=== PATIENT | female | born 1950 | race Caucasian/White ===

== ENCOUNTER 2022-04-06 14:06 | Inpatient (IN) | payer MEDICARE ==
[~2022-04-06] VITALS: Ht 154.9 cm; Wt 59.0 kg
--- NOTE | 2022-04-06 14:10 | NUR ---
DELAY IN PATIENT CARE, DAUGHTER CALLING 'S OFFICE TO CLARIFY ADMIT ORDERS.
[2022-04-06 14:56] LABS: HEMATOCRIT 39.1 % (37.0-47.0); HEMOGLOBIN 11.8 g/dl (12.0-16.0); IMMATURE GRANULOCYTES 1.2 % (0.0-5.0); MEAN CELL VOLUME 90.7 fL CALC (80.0-100.0); MEAN CORPUSCULAR HGB 27.4 pG CALC (26.0-32.0); MEAN CORPUSCULAR HGB CONC 30.2 g/dL CAL (32.0-36.0); NEUT# 13.52 thou/uL (2.00-7.15); RED BLOOD COUNT 4.31 mill/uL (4.20-5.60); RED CELL DISTRI WIDTH 15.4 % (11.5-15.5)
[2022-04-06 15:06] LABS: ALBUMIN 3.4 g/dL (3.2-5.0); ALKALINE PHOSPHATASE 65 u/l (38-126); ANION GAP 9 (6-22 (CALC)); BILIRUBIN, TOTAL 0.6 mg/dL (0.0-1.4); BUN 13 mg/dL (8-23); BUN/CREATININE RATIO 22 (12-20 (CALC)); CARBON DIOXIDE 25 mmol/l (22-30); CHLORIDE 107 mmol/l (95-108); CREATININE 0.6 mg/dL (0.5-1.0); GFR FOR AFR.AMER. > 60 ML/MIN (>=60 (CALC)); GFR OTHER RACES > 60 ML/MIN (>=60 (CALC)); POTASSIUM 3.3 mmol/l (3.5-5.1); SGOT/AST 24 u/l (9-36); SODIUM 137 mmol/l (137-146); TOTAL PROTEIN 6.2 g/dL (6.3-8.2)
--- NOTE | 2022-04-06 15:47 | NUR ---
Reassessment of patient completed. No distress noted.
--- NOTE | 2022-04-06 16:51 | NUR ---
Reassessment of patient completed. No distress noted.
--- NOTE | 2022-04-06 17:05 | NUR ---
RECEIVED PATIENT FROM ED VIA STRETCHER @ [id number]. BESIDE REPORT RECEIVED FROM ED RN. PATIENT IS A&OX4. PATIENT PRESENTS WITH PNEUMONIA. 02 PLACED @ 3L VIA NC. PATIENT DENIES PAIN AT THIS TIME. PATIENT IS RESTING IN BED IN LOW SEMI-FOWLERS POSITION. ASSESSMENT COMPLETED. ORIENTED PATIENT TO ROOM, CALL LIGHT WITH IN REACH, BED IN LOWEST POSITION.
--- NOTE | 2022-04-06 17:16 | NUR ---
REPORT GIVEN TO HÉCTOR
[2022-04-06 17:49] VITALS: BP 127/78
--- NOTE | 2022-04-06 19:07 | NUR ---
MESSAGED ABOUT SEPSIS RISK ALERT. ADDED ORDERS.
[2022-04-06 19:13] VITALS: BP 100/64
[2022-04-06] MEDS ORDERED: LEFLUNOMIDE20 MG PO (19:23)
[2022-04-06] MEDS ORDERED: LOSARTAN POTASS50 MG PO (19:24)
[2022-04-06] MEDS ORDERED: LEVOTHYROXIN50 MCG PO (19:25)
[2022-04-06] MEDS ORDERED: PREDNISONE5 MG PO (19:26)
[2022-04-06] MEDS ORDERED: AMLODIPINE BESYL5 MG PO (19:27)
[2022-04-06] MEDS ORDERED: OMEPRAZOLE20 MG PO (19:28)
[2022-04-06] MEDS ORDERED: SPIRONOLACTONE25 MG PO (19:29)
[2022-04-06] MEDS ORDERED: CRESTOR5 MG PO (19:32)
[2022-04-06] MEDS ORDERED: MONTELUKAST SOD10 MG PO ×2 (19:32→19:36)
[2022-04-06] MEDS ORDERED: PROAIR DIG108 MCG/AC (19:33)
[2022-04-06] MEDS ORDERED: YUPELRI175 MCG/3 (19:33)
[2022-04-06] MEDS ORDERED: JANTOVEN5 MG PO (19:35)
[2022-04-06] MEDS ORDERED: SILDENAFIL20 MG (19:36)
[2022-04-06] MEDS ORDERED: FUROSEMIDE20 MG PO (19:37)
--- NOTE | 2022-04-06 20:30 | NUR ---
PT IN BED AWAKE NO DISTRESS NOTED, PT WAS PUT ON IV FLUIDS AND WAS TOLD HER ARM WAS HURTING WENT IN TO CHECK PT AND HER IV WAS SWOLLEN AND INFILTRATED, REMOVED IV AND PLACED A NEW IV. GAVE PT A COLD PACK TO PUT ON ARM, BED IN LOW POSITION, CALL LIGHT IN REACH
[2022-04-06 20:56] LABS: INTERNATIONAL NORMALIZED RATIO 2.6 RATIO (0.7-1.3); PROTHROMBIN TIME 25.7 SECONDS (9.0-12.5)
--- NOTE | 2022-04-07 | NUR ---
PT IN BED ASLEEP, NO DISTRESS NOTED, BED IN LOW POSITION, CALL LIGHT IN REACH
[2022-04-07 00:23] VITALS: BP 122/79
[2022-04-07 04:19] VITALS: BP 126/78
[2022-04-07 05:38] LABS: HEMATOCRIT 35.6 % (37.0-47.0); HEMOGLOBIN 10.8 g/dl (12.0-16.0); MEAN CELL VOLUME 91.3 fL CALC (80.0-100.0); MEAN CORPUSCULAR HGB 27.7 pG CALC (26.0-32.0); MEAN CORPUSCULAR HGB CONC 30.3 g/dL CAL (32.0-36.0); RED BLOOD COUNT 3.9 mill/uL (4.20-5.60); RED CELL DISTRI WIDTH 15.1 % (11.5-15.5)
[2022-04-07 05:42] LABS: ANION GAP 9 (6-22 (CALC)); BUN 12 mg/dL (8-23); BUN/CREATININE RATIO 23 (12-20 (CALC)); CARBON DIOXIDE 22 mmol/l (22-30); CHLORIDE 112 mmol/l (95-108); CREATININE 0.5 mg/dL (0.5-1.0); GFR FOR AFR.AMER. > 60 ML/MIN (>=60 (CALC)); GFR OTHER RACES > 60 ML/MIN (>=60 (CALC)); SODIUM 139 mmol/l (137-146)
[2022-04-07 05:46] LABS: POTASSIUM 4.1 mmol/l (3.5-5.1)
[2022-04-07 07:00] VITALS: BP 133/78
--- NOTE | 2022-04-07 08:00 | NUR ---
GOT REPORT FROM MICROBIOLOGY COORDINATOR NURSE. PATIENT ASSESSED. AOX4. PATIENT IV IN RH BLEEDING POST BP. IV REMOVED AND NEW IV STARTED IN RFA. PATIENT TOLERATED WELL. RESTARTED FLUIDS. MEDICATION GIVEN AND BREAKFAST GIVEN. PATIENT CALL LIGHT AND BEDSIDE TABLE WITH IN REACH. ADVISED TO CALL IF SHE NEEDED ANYTHING. PATIENT VERBALIZED UNDERSTANDING. DOOR LEFT OPEN PER PATIENT REQUEST.
--- NOTE | 2022-04-07 11:35 | NUR ---
Patient instructed on use of acapella. Patient demonstrated with good effort.
[2022-04-07 11:57] VITALS: BP 132/88
[2022-04-07 15:09] VITALS: BP 131/76
[2022-04-07 19:20] VITALS: BP 110/69
--- NOTE | 2022-04-07 20:22 | NUR ---
PT IS IN BED AWAKE, NO DISTRESS NOTED, PT STATES NO PAIN, BED IN LOW POSITION, CALL LIGHT IN REACH
[2022-04-07 20:31] LABS: URINE BILIRUBIN - DIPSTICK NEGATIVE (NEGATIVE); URINE BLOOD DIPSTICK NEGATIVE (NEGATIVE); URINE COLOR YELLOW; URINE GLUCOSE - DIPSTICK NEGATIVE (NEGATIVE); URINE KETONE NEGATIVE (NEGATIVE); URINE LEUK ESTERASE NEGATIVE (NEGATIVE); URINE PROTEIN - DIPSTICK NEGATIVE (NEG-TRACE); URINE SPECIFIC GRAVITY 1.015; URINE UROBILINOGEN - DIPSTICK 0.2 E.U./dL (0.2)
[2022-04-07 20:32] LABS: URINE NITRITE - DIPSTICK NEGATIVE (Negative)
[2022-04-08 00:20] VITALS: BP 126/72
[2022-04-08 03:57] VITALS: BP 129/73
[2022-04-08 05:15] LABS: HEMATOCRIT 32.4 % (37.0-47.0); HEMOGLOBIN 9.9 g/dl (12.0-16.0); IMMATURE GRANULOCYTES 0.6 % (0.0-5.0); MEAN CELL VOLUME 90.8 fL CALC (80.0-100.0); MEAN CORPUSCULAR HGB 27.7 pG CALC (26.0-32.0); MEAN CORPUSCULAR HGB CONC 30.6 g/dL CAL (32.0-36.0); NEUT# 9.96 thou/uL (2.00-7.15); RED BLOOD COUNT 3.57 mill/uL (4.20-5.60); RED CELL DISTRI WIDTH 15.4 % (11.5-15.5)
[2022-04-08 05:32] LABS: BUN 16 mg/dL (8-23); BUN/CREATININE RATIO 24 (12-20 (CALC)); CARBON DIOXIDE 24 mmol/l (22-30); CREATININE 0.7 mg/dL (0.5-1.0); GFR FOR AFR.AMER. > 60 ML/MIN (>=60 (CALC)); GFR OTHER RACES > 60 ML/MIN (>=60 (CALC))
[2022-04-08 05:42] LABS: ANION GAP 5 (6-22 (CALC)); CHLORIDE 114 mmol/l (95-108); INTERNATIONAL NORMALIZED RATIO 2.1 RATIO (0.7-1.3); POTASSIUM 3.5 mmol/l (3.5-5.1); PROTHROMBIN TIME 20.8 SECONDS (9.0-12.5); SODIUM 139 mmol/l (137-146)
[2022-04-08 06:42] VITALS: BP 137/73
[2022-04-08 08:20] VITALS: BP 137/73
--- NOTE | 2022-04-08 08:24 | NUR ---
RESTING IN BED, NO SIGNS OR SYMPTOMS OF DISTRESS NOTED OR VOICED.
[2022-04-08 10:56] VITALS: BP 132/80
[2022-04-08] MEDS ORDERED: LEVAQUIN750 M1 PO (11:36)
[2022-04-08] MEDS ORDERED: MEDDOSEPAK PO (11:37)
--- NOTE | 2022-04-08 12:05 | NUR ---
PATIENT DISCHARGED HOME IN STABLE CONDITION, GIVEN PAPER PRESCRIPTIONS, INSTRUCTIONS AND MEDICATIONS GONE OVER AND UNDERSTANDING VERBALIZIED.
== END 2022-04-08 11:59 | disposition home or self-care (01) | DRG 190 ==
LOC: ED 14:06 → ED-I 15:02 → ED 16:17 → MS2 16:18
PROVIDERS: Family Medicine; Nurse Practitioner; ADMIT Hospitalist; ATTEND Hospitalist
DX: J44.1 Chronic obstructive pulmonary disease with (acute) exacerbation (principal); J18.9 Pneumonia, unspecified organism; J44.0 Chronic obstructive pulmonary disease with (acute) lower respiratory infection; R09.02 Hypoxemia; I11.0 Hypertensive heart disease with heart failure; I50.9 Heart failure, unspecified; Z99.81 Dependence on supplemental oxygen; Z86.711 Personal history of pulmonary embolism; Z79.01 Long term (current) use of anticoagulants; Z87.891 Personal history of nicotine dependence; Z20.822 Contact with and (suspected) exposure to COVID-19
CPT/HCPCS: J1650